=== PATIENT | male | born 1960 | race Caucasian/White ===

== ENCOUNTER 2021-11-26 16:02 | Inpatient (IN) ==
[2021-11-26 16:37] LABS: Hematocrit 44.5 VOL% (42.0-52.0); Hemoglobin 14.9 GM/DL (14.0-18.0); Immature Granulocytes % 0.5 %; Immature Granulocytes Absolute 0.02 #; Lymphocytes # 0.4 10*3/uL (1.4-4.0); Lymphocytes % 9.3 % (21.2-54.2); Mean Corpuscular HGB Conc 33.5 GM/DL (32-36); Mean Corpuscular Volume 82.6 FL (87-102); Mean Platelet Volume 9.9 FL (9.6-12.0); Monocytes % 5.7 % (1.7-12.7); Neutrophils % 84.5 % (38.7-73.9); Platelet Count 99 T/CUMM (130-400); Red Blood Count 5.39 MC/CUMM (3.8-5.5); Red Cell Distribution Width 13.5 % (9.3-17.3); White Blood Count 4.1 T/CUMM (4-12)
[2021-11-26] MEDS ORDERED: SODIUM CHLORIDE 0.9% 1,000 ML IV STA ×2 (16:48→17:42)
[2021-11-26] MEDS ORDERED: DEXAMETHASONE 4 MG/1 ML VIAL IV STA (16:48)
[2021-11-26] MEDS ORDERED: cefTRIAXone 1,000 MG in SODIUM CHLORIDE 0.9% 100 ML IV STA (16:48)
[2021-11-26 17:07] LABS: Albumin 2.8 G/DL (3.4-5.0); Bilirubin,Total 0.5 MG/DL (0.20-1.00); Osmolality,Calculated 273.5 MOS/KG (273-304); Potassium 3.4 MMOL/L (3.5-5.1); Total Protein 7.2 G/DL (6.4-8.2)
[2021-11-26 17:31] LABS: Ferritin 4721.1 ng/mL (26-388)
[2021-11-26] MEDS ORDERED: DILTIAZEM 50 MG/10 ML VIAL IV STA (17:42)
[2021-11-26] MEDS ORDERED: DILTIAZEM 25 MG/5 ML VIAL IV ONE (17:51)
[2021-11-26] MEDS ORDERED: guaiFENesin/DM ER 600-30 MG TABLET PO PRN (18:20)
[2021-11-26] MEDS ORDERED: CALCIUM CARBONATE CHEW 500 MG TABLET PO PRN (18:20)
[2021-11-26] MEDS ORDERED: ACETAMINOPHEN 325 MG TABLET PO PRN (18:20)
[2021-11-26] MEDS ORDERED: ENOXAPARIN 40 MG/0.4 ML SYRINGE SUBCUT SCH (18:30)
[2021-11-26] MEDS: SODIUM CHLORIDE 0.9% 1,000 ML IV SCH (19:45)
[2021-11-26] MEDS ORDERED: METOPROLOL TARTRATE 5 MG/5 ML VIAL IV STA (19:56)
[2021-11-26] MEDS: FAMOTIDINE 20 MG TABLET PO SCH (21:15)
[2021-11-27 03:56] LABS: Basophils % 0.2 % (0.0-0.8); Hematocrit 45.1 VOL% (42.0-52.0); Immature Granulocytes % 0.4 %; Immature Granulocytes Absolute 0.02 #; Lymphocytes # 0.6 10*3/uL (1.4-4.0); Mean Corpuscular HGB Conc 33.3 GM/DL (32-36); Mean Corpuscular Volume 83.7 FL (87-102); Mean Platelet Volume 11.8 FL (9.6-12.0); Monocytes % 6.7 % (1.7-12.7); Neutrophils % 82.7 % (38.7-73.9); Platelet Count 105 T/CUMM (130-400); Red Blood Count 5.39 MC/CUMM (3.8-5.5); White Blood Count 5.5 T/CUMM (4-12)
[2021-11-27 04:12] LABS: Calcium 8.8 MG/DL (8.5-10.1); Osmolality,Calculated 274.4 MOS/KG (273-304); Potassium 5.7 MMOL/L (3.5-5.1)
[2021-11-27] MEDS: SODIUM CHLORIDE 0.9% 1,000 ML IV SCH ×3 (06:48→19:54)
[2021-11-27] MEDS ORDERED: REMDESIVIR 100 MG in SODIUM CHLORIDE 0.9% 100 ML IV SCH (09:00)
[2021-11-27] MEDS ORDERED: DILTIAZEM INJ 100 MG in SODIUM CHLORIDE 0.9% 100 ML IV SCH (09:00)
[2021-11-27] MEDS ORDERED: DEXAMETHASONE 4 MG TABLET PO SCH (09:00)
[2021-11-27] MEDS ORDERED: INSULIN REGULAR 10 UNIT, CALCIUM GLUCONATE 1,000 MG in DEXTROSE 10% 250 ML IV ONE (09:03)
[2021-11-27] MEDS ORDERED: AZITHROMYCIN INJ 500 MG in SODIUM CHLORIDE 0.9% 250 ML IV ONE (09:04)
[2021-11-27 10:31] LABS: ABG Base Excess -1.5 MMOL/L (-2.5-2.5); ABG Oxygen Saturation 93.5 % (95-100); ABG PCO2 33.8 MM HG (35-48); ABG PH 7.423 (7.35-7.45); ABG PO2 71.2 MM HG (80-95); ABG TCO2 18.8 MMOL/L (23-27); Allen Test Positive; Pt O2 Delivery Device BIPAP
[2021-11-27] MEDS: FAMOTIDINE 20 MG TABLET PO SCH ×2 (10:32→21:23)
[2021-11-27] MEDS: APIXABAN 5 MG TABLET PO SCH ×2 (10:45→21:31)
[2021-11-27] MEDS: DEXAMETHASONE 4 MG/1 ML VIAL IV SCH (10:45)
[2021-11-27] MEDS: CHOLECALCIFEROL 1,000 UNIT TABLET PO SCH (10:47)
[2021-11-27] MEDS: ASCORBIC ACID 500 MG TABLET PO SCH ×2 (10:47→21:23)
[2021-11-27] MEDS: ZINC GLUCONATE 50 MG TABLET PO SCH (10:48)
[2021-11-27] MEDS ORDERED: AMIODARONE INJ 150 MG in DEXTROSE 5% 100 ML IV ONE (11:02)
[2021-11-27] MEDS ORDERED: AMIODARONE INJ 450 MG in DEXTROSE 5% 241 ML IV SCH (11:30)
[2021-11-27] MEDS ORDERED: REMDESIVIR 200 MG in SODIUM CHLORIDE 0.9% 210 ML IV ONE (15:00)
[2021-11-27 16:41] LABS: Calcium 6.6 MG/DL (8.5-10.1); Osmolality,Calculated 291.7 MOS/KG (273-304); Potassium 3.1 MMOL/L (3.5-5.1)
[2021-11-27] MEDS: AMIODARONE INJ 450 MG in DEXTROSE 5% 241 ML IV SCH (23:30)
[2021-11-28 03:46] LABS: Hematocrit 45.9 VOL% (42.0-52.0); Immature Granulocytes % 0.4 %; Immature Granulocytes Absolute 0.04 #; Lymphocytes # 0.4 10*3/uL (1.4-4.0); Lymphocytes % 3.6 % (21.2-54.2); Mean Corpuscular HGB Conc 32.7 GM/DL (32-36); Mean Corpuscular Volume 84.7 FL (87-102); Monocytes % 4.4 % (1.7-12.7); Neutrophils % 91.6 % (38.7-73.9); Platelet Count 144 T/CUMM (130-400); Red Blood Count 5.42 MC/CUMM (3.8-5.5); Red Cell Distribution Width 14.1 % (9.3-17.3); White Blood Count 9.7 T/CUMM (4-12)
[2021-11-28 04:00] LABS: Potassium 4.4 MMOL/L (3.5-5.1)
[2021-11-28 04:08] LABS: Lymphocytes 1 % (20-55); Platelet Estimate Adequate; Segmented Neutrophils 97 % (50-85); Total Cells Counted 100
[2021-11-28 04:16] LABS: Albumin 2.6 G/DL (3.4-5.0); Bilirubin,Total 0.7 MG/DL (0.20-1.00); Calcium 8.8 MG/DL (8.5-10.1); Potassium 4.5 MMOL/L (3.5-5.1); Total Protein 6.8 G/DL (6.4-8.2)
[2021-11-28 04:53] LABS: Sedimentation Rate-Westergren 16 MM/HR (0-20)
[2021-11-28] MEDS ORDERED: diphenhydrAMINE 50 MG/1 ML VIAL IV ONE (06:17)
[2021-11-28] MEDS: SODIUM CHLORIDE 0.9% 1,000 ML IV SCH ×3 (07:30→17:37)
[2021-11-28] MEDS ORDERED: LORazepam 2 MG/1 ML VIAL IV STA (08:01)
[2021-11-28] MEDS ORDERED: ROCURONIUM 100 MG/10 ML VIAL IV ONE (08:16)
[2021-11-28] MEDS ORDERED: ETOMIDATE 20 MG/10 ML VIAL IV ONE ×2 (08:16→08:36)
[2021-11-28] MEDS ORDERED: METOPROLOL TARTRATE 5 MG/5 ML VIAL IV ONE ×3 (08:24→12:36)
[2021-11-28] MEDS ORDERED: MIDAZOLAM 2 MG/2 ML VIAL ONE (08:27)
[2021-11-28] MEDS ORDERED: MIDAZOLAM 2 MG/2 ML VIAL IV ONE (08:31)
[2021-11-28 08:57] LABS: ABG Base Excess -4.6 MMOL/L (-2.5-2.5); ABG HCO3 20.4 MMOL/L (20-26); ABG PO2 71.2 MM HG (80-95); ABG TCO2 23.6 MMOL/L (23-27)
[2021-11-28 08:59] LABS: ABG PH 7.181 (7.35-7.45)
[2021-11-28 09:00] LABS: ABG PCO2 70.4 MM HG (35-48)
[2021-11-28] MEDS: MIDAZOLAM 100 MG in SODIUM CHLORIDE 0.9% 80 ML IV PRN ×2 (09:20→19:28)
[2021-11-28] MEDS: fentaNYL INJ 1,250 MCG in SODIUM CHLORIDE 0.9% 225 ML IV PRN ×2 (09:30→12:47)
[2021-11-28] MEDS: ROCURONIUM 500 MG in SODIUM CHLORIDE 0.9% 500 ML IV PRN (09:34)
[2021-11-28] MEDS ORDERED: BARICITINIB 2 MG TABLET PER TUBE SCH (09:45)
[2021-11-28 10:57] LABS: ABG Base Excess -6.8 MMOL/L (-2.5-2.5); ABG HCO3 18.8 MMOL/L (20-26); ABG Oxygen Saturation 91.5 % (95-100); ABG PO2 86.6 MM HG (80-95); ABG TCO2 23.4 MMOL/L (23-27)
[2021-11-28 11:02] LABS: Bilirubin,Urine Negative (Negative); Blood, Urine Moderate mg/dL (Negative); Glucose,Urine (UA) Negative (Negative); Ketones,Urine Negative (Negative); Mucus,Urine Occasional /LPF (Occasional); Nitrite,Urine Negative (Negative); Protein,Urine 100 MG/DL; RBC,Urine 48 /HPF (0-4); Squamous Epithelial Cell,Urine Occasional /HPF (0-10); Urine Appearance CLEAR (Clear); Urine Color Yellow (Yellow); Urine Specific Gravity 1.018 (1.001-1.035)
[2021-11-28 11:03] LABS: ABG PCO2 78.2 MM HG (35-48)
[2021-11-28] MEDS ORDERED: SODIUM CHLORIDE 0.9% 1,000 ML IV ONE ×2 (11:06→16:14)
[2021-11-28] MEDS: REMDESIVIR 100 MG in SODIUM CHLORIDE 0.9% 100 ML IV SCH (11:56)
[2021-11-28] MEDS: AZITHROMYCIN 250 MG TABLET PO SCH (12:04)
[2021-11-28] MEDS: FAMOTIDINE 20 MG TABLET PO SCH ×2 (12:04→21:06)
[2021-11-28] MEDS: ASCORBIC ACID 500 MG TABLET PO SCH ×2 (12:04→21:06)
[2021-11-28] MEDS: ZINC GLUCONATE 50 MG TABLET PO SCH (12:04)
[2021-11-28] MEDS: DEXAMETHASONE 4 MG/1 ML VIAL IV SCH (12:04)
[2021-11-28] MEDS: APIXABAN 5 MG TABLET PO SCH ×2 (12:04→21:06)
[2021-11-28] MEDS: CHOLECALCIFEROL 1,000 UNIT TABLET PO SCH (12:04)
[2021-11-28] MEDS: cefTRIAXone 1,000 MG in SODIUM CHLORIDE 0.9% 100 ML IV SCH (12:05)
[2021-11-28 12:12] VITALS: BP 142/107
[2021-11-28 12:45] LABS: ABG HCO3 18.8 MMOL/L (20-26); ABG Oxygen Saturation 96.8 % (95-100); ABG TCO2 23.5 MMOL/L (23-27)
[2021-11-28 12:47] LABS: ABG PCO2 80.5 MM HG (35-48); ABG PH 7.109 (7.35-7.45)
[2021-11-28] MEDS ORDERED: ALBUMIN 25% 25 GM/100 ML VIAL IV ONE (14:09)
[2021-11-28] MEDS ORDERED: PHENYLEPHRINE DRIP 40 MG/250 ML PREMIX IV ONE (14:14)
[2021-11-28] MEDS ORDERED: DIGOXIN 0.5 MG/2 ML AMP IV ONE ×3 (14:14→15:15)
[2021-11-28] MEDS: PHENYLEPHRINE DRIP 40 MG/250 ML PREMIX IV PRN ×2 (14:25→22:20)
[2021-11-28] MEDS: AMIODARONE INJ 450 MG in DEXTROSE 5% 241 ML IV SCH (14:44)
[2021-11-28] MEDS: fentaNYL INJ 2,500 MCG in SODIUM CHLORIDE 0.9% 75 ML IV PRN ×2 (16:33→22:29)
[2021-11-29] MEDS: SODIUM CHLORIDE 0.9% 1,000 ML IV SCH ×3 (01:48→18:34)
[2021-11-29] MEDS: ROCURONIUM 500 MG in SODIUM CHLORIDE 0.9% 500 ML IV PRN (03:49)
[2021-11-29] MEDS: fentaNYL INJ 2,500 MCG in SODIUM CHLORIDE 0.9% 75 ML IV PRN ×4 (03:49→21:16)
[2021-11-29 04:35] LABS: ABG Base Excess -7.3 MMOL/L (-2.5-2.5); ABG Oxygen Saturation 93.5 % (95-100); ABG PO2 74.9 MM HG (80-95); ABG TCO2 23.9 MMOL/L (23-27)
[2021-11-29 04:43] LABS: ABG PH 7.168 (7.35-7.45)
[2021-11-29] MEDS: AMIODARONE INJ 450 MG in DEXTROSE 5% 241 ML IV SCH ×2 (04:57→21:03)
[2021-11-29 05:02] LABS: Basophils % 0.1 % (0.0-0.8); Immature Granulocytes % 1.2 %; Immature Granulocytes Absolute 0.15 #; Lymphocytes # 0.7 10*3/uL (1.4-4.0); Lymphocytes % 5.1 % (21.2-54.2); Mean Corpuscular HGB Conc 30.7 GM/DL (32-36); Mean Corpuscular Volume 90.9 FL (87-102); Mean Platelet Volume 10.3 FL (9.6-12.0); Monocytes % 5.8 % (1.7-12.7); Neutrophils % 87.8 % (38.7-73.9); Red Blood Count 4.62 MC/CUMM (3.8-5.5); Red Cell Distribution Width 15.4 % (9.3-17.3)
[2021-11-29 05:05] LABS: Hemoglobin 12.9 GM/DL (14.0-18.0); Platelet Count 103 T/CUMM (130-400); White Blood Count 12.9 T/CUMM (4-12)
[2021-11-29 05:14] LABS: Albumin 2.1 G/DL (3.4-5.0); Bilirubin,Total 0.4 MG/DL (0.20-1.00); Calcium 8.3 MG/DL (8.5-10.1); Ferritin 2869.9 ng/mL (26-388); Osmolality,Calculated 289.5 MOS/KG (273-304); Potassium 5.4 MMOL/L (3.5-5.1); Total Protein 5.6 G/DL (6.4-8.2)
[2021-11-29 05:17] LABS: Band Neutrophils 2 % (0-10); Hypochromia 1+; Lymphocytes 3 % (20-55); Microcytosis 1+; Segmented Neutrophils 90 % (50-85); Total Cells Counted 100
[2021-11-29 05:18] LABS: Ovalocytes Slight; Platelet Estimate Decreased
[2021-11-29] MEDS: PHENYLEPHRINE DRIP 40 MG/250 ML PREMIX IV PRN ×3 (05:20→20:54)
[2021-11-29 06:33] LABS: Sedimentation Rate-Westergren 8 MM/HR (0-20)
[2021-11-29] MEDS: DEXAMETHASONE 4 MG/1 ML VIAL IV SCH (08:28)
[2021-11-29] MEDS: ASCORBIC ACID 500 MG TABLET PO SCH ×2 (08:29→21:42)
[2021-11-29] MEDS: BARICITINIB 2 MG TABLET PER TUBE SCH (08:29)
[2021-11-29] MEDS: AZITHROMYCIN 250 MG TABLET PO SCH (08:29)
[2021-11-29] MEDS: CHOLECALCIFEROL 1,000 UNIT TABLET PO SCH (08:30)
[2021-11-29] MEDS: APIXABAN 5 MG TABLET PO SCH ×2 (08:30→21:43)
[2021-11-29] MEDS: FAMOTIDINE 20 MG TABLET PER TUBE SCH (08:30)
[2021-11-29] MEDS: ZINC GLUCONATE 50 MG TABLET PO SCH (08:30)
[2021-11-29] MEDS: REMDESIVIR 100 MG in SODIUM CHLORIDE 0.9% 100 ML IV SCH (08:31)
[2021-11-29] MEDS: MIDAZOLAM 100 MG in SODIUM CHLORIDE 0.9% 80 ML IV PRN (10:02)
[2021-11-29] MEDS: cefTRIAXone 1,000 MG in SODIUM CHLORIDE 0.9% 100 ML IV SCH (11:56)
[2021-11-29] MEDS ORDERED: DEXTROSE 50% 25 GM/50 ML SYRINGE IV PRN (13:37)
[2021-11-29] MEDS ORDERED: GLUCAGON 1 MG VIAL IM PRN (13:37)
[2021-11-29] MEDS: DIGOXIN 0.25 MG TABLET PO SCH (15:23)
[2021-11-29] MEDS: INSULIN REGULAR 100 UNIT/ML SUBCUT SCH (18:34)
[2021-11-30] MEDS: INSULIN REGULAR 100 UNIT/ML SUBCUT SCH ×4 (00:40→17:42)
[2021-11-30] MEDS: MIDAZOLAM 100 MG in SODIUM CHLORIDE 0.9% 80 ML IV PRN ×2 (01:22→17:00)
[2021-11-30] MEDS: SODIUM CHLORIDE 0.9% 1,000 ML IV SCH (02:41)
[2021-11-30 03:57] LABS: ABG Base Excess -7.6 MMOL/L (-2.5-2.5); ABG HCO3 20.2 MMOL/L (20-26); ABG PCO2 50.3 MM HG (35-48); ABG PH 7.221 (7.35-7.45); ABG PO2 60.8 MM HG (80-95); ABG TCO2 21.7 MMOL/L (23-27)
[2021-11-30 03:59] LABS: Basophils % 0.1 % (0.0-0.8); Hematocrit 40.7 VOL% (42.0-52.0); Hemoglobin 12.3 GM/DL (14.0-18.0); Immature Granulocytes % 1.4 %; Immature Granulocytes Absolute 0.16 #; Lymphocytes # 0.6 10*3/uL (1.4-4.0); Lymphocytes % 5.8 % (21.2-54.2); Mean Corpuscular HGB Conc 30.2 GM/DL (32-36); Mean Corpuscular Volume 91.1 FL (87-102); Mean Platelet Volume 9.4 FL (9.6-12.0); Monocytes % 5.8 % (1.7-12.7); Neutrophils % 86.9 % (38.7-73.9); Platelet Count 113 T/CUMM (130-400); Red Blood Count 4.47 MC/CUMM (3.8-5.5); Red Cell Distribution Width 15.7 % (9.3-17.3); White Blood Count 11.1 T/CUMM (4-12)
[2021-11-30 04:27] LABS: Alanine Aminotransferase 50 U/L (16-61); Albumin 1.9 G/DL (3.4-5.0); Alkaline Phosphatase 94 U/L (45-117); Aspartate Amino Transferase 48 U/L (0-37); Bilirubin,Total < 0.39 MG/DL (0.20-1.00); Blood Urea Nitrogen 57 MG/DL (7-18); Carbon Dioxide 23 MMOL/L (21-32); Estimated Glom Filtration Rate 23 ML/MIN; Ferritin 2377.6 ng/mL (26-388); Glucose 134 MG/DL (74-106); Potassium 5.4 MMOL/L (3.5-5.1); Sodium 143 MMOL/L (136-145); Total Protein 5.3 G/DL (6.4-8.2)
[2021-11-30 05:01] LABS: Sedimentation Rate-Westergren 6 MM/HR (0-20)
[2021-11-30] MEDS: fentaNYL INJ 2,500 MCG in SODIUM CHLORIDE 0.9% 75 ML IV PRN ×3 (05:05→20:12)
[2021-11-30] MEDS: DEXAMETHASONE 4 MG/1 ML VIAL IV SCH (08:06)
[2021-11-30] MEDS: BARICITINIB 2 MG TABLET PER TUBE SCH (08:07)
[2021-11-30] MEDS: ASCORBIC ACID 500 MG TABLET PO SCH ×2 (08:07→21:06)
[2021-11-30] MEDS: ZINC GLUCONATE 50 MG TABLET PO SCH (08:07)
[2021-11-30] MEDS: FAMOTIDINE 20 MG TABLET PER TUBE SCH (08:07)
[2021-11-30] MEDS: CHOLECALCIFEROL 1,000 UNIT TABLET PO SCH (08:07)
[2021-11-30] MEDS: APIXABAN 5 MG TABLET PO SCH ×2 (08:07→21:07)
[2021-11-30] MEDS: AZITHROMYCIN 250 MG TABLET PO SCH (08:07)
[2021-11-30] MEDS: PHENYLEPHRINE DRIP 40 MG/250 ML PREMIX IV PRN (08:20)
[2021-11-30] MEDS: REMDESIVIR 100 MG in SODIUM CHLORIDE 0.9% 100 ML IV SCH (09:37)
[2021-11-30] MEDS ORDERED: FUROSEMIDE 40 MG/4 ML VIAL IV ONE (10:26)
[2021-11-30] MEDS: LACTATED RINGERS 1,000 ML IV SCH ×2 (11:22→22:08)
[2021-11-30] MEDS: AMIODARONE INJ 450 MG in DEXTROSE 5% 241 ML IV SCH (12:43)
[2021-11-30] MEDS: cefTRIAXone 1,000 MG in SODIUM CHLORIDE 0.9% 100 ML IV SCH (12:44)
[2021-11-30] MEDS: DIGOXIN 0.25 MG TABLET PO SCH (14:54)
[2021-11-30] MEDS ORDERED: DIGOXIN 0.5 MG/2 ML AMP IV ONE (15:07)
[2021-11-30] MEDS: ROCURONIUM 500 MG in SODIUM CHLORIDE 0.9% 500 ML IV PRN (21:10)
[2021-12-01] MEDS: INSULIN REGULAR 100 UNIT/ML SUBCUT SCH ×4 (00:27→19:05)
[2021-12-01] MEDS: AMIODARONE INJ 450 MG in DEXTROSE 5% 241 ML IV SCH (03:12)
[2021-12-01] MEDS: fentaNYL INJ 2,500 MCG in SODIUM CHLORIDE 0.9% 75 ML IV PRN ×3 (04:08→19:05)
[2021-12-01 04:54] LABS: Hematocrit 37.6 VOL% (42.0-52.0); Hemoglobin 11.4 GM/DL (14.0-18.0); Immature Granulocytes % 1.6 %; Immature Granulocytes Absolute 0.18 #; Lymphocytes # 0.5 10*3/uL (1.4-4.0); Lymphocytes % 4.1 % (21.2-54.2); Mean Corpuscular HGB Conc 30.3 GM/DL (32-36); Mean Corpuscular Volume 92.2 FL (87-102); Mean Platelet Volume 10.2 FL (9.6-12.0); Monocytes % 6.1 % (1.7-12.7); Neutrophils % 88.2 % (38.7-73.9); Platelet Count 107 T/CUMM (130-400); Red Blood Count 4.08 MC/CUMM (3.8-5.5); Red Cell Distribution Width 15.8 % (9.3-17.3); White Blood Count 11.1 T/CUMM (4-12)
[2021-12-01 04:57] LABS: ABG Base Excess -6.9 MMOL/L (-2.5-2.5); ABG HCO3 18.8 MMOL/L (20-26); ABG Oxygen Saturation 96.9 % (95-100); ABG PCO2 56.9 MM HG (35-48); ABG TCO2 20.3 MMOL/L (23-27)
[2021-12-01 05:09] LABS: ABG PH 7.196 (7.35-7.45)
[2021-12-01 05:17] LABS: Albumin 1.7 G/DL (3.4-5.0); Bilirubin,Total 0.4 MG/DL (0.20-1.00); Calcium 7.8 MG/DL (8.5-10.1); Osmolality,Calculated 313.7 MOS/KG (273-304); Potassium 5.9 MMOL/L (3.5-5.1)
[2021-12-01 05:22] LABS: Lymphocytes 6 % (20-55); Platelet Estimate Decreased; Segmented Neutrophils 87 % (50-85); Total Cells Counted 100
[2021-12-01] MEDS: PHENYLEPHRINE DRIP 40 MG/250 ML PREMIX IV PRN (05:34)
[2021-12-01] MEDS ORDERED: SODIUM POLYSTYRENE SULFATE 15 GM/60 ML BOTTLE PO ONE (07:24)
[2021-12-01] MEDS: LACTATED RINGERS 1,000 ML IV SCH (07:50)
[2021-12-01] MEDS: MIDAZOLAM 100 MG in SODIUM CHLORIDE 0.9% 80 ML IV PRN (07:51)
[2021-12-01] MEDS: APIXABAN 5 MG TABLET PO SCH ×2 (08:13→20:27)
[2021-12-01] MEDS: ASCORBIC ACID 500 MG TABLET PO SCH ×2 (08:13→20:27)
[2021-12-01] MEDS: DEXAMETHASONE 4 MG/1 ML VIAL IV SCH (08:13)
[2021-12-01] MEDS: AZITHROMYCIN 250 MG TABLET PO SCH (08:13)
[2021-12-01] MEDS: BARICITINIB 2 MG TABLET PER TUBE SCH (08:14)
[2021-12-01] MEDS: ZINC GLUCONATE 50 MG TABLET PO SCH (08:14)
[2021-12-01] MEDS: FAMOTIDINE 20 MG TABLET PER TUBE SCH (08:14)
[2021-12-01] MEDS: CHOLECALCIFEROL 1,000 UNIT TABLET PO SCH (08:14)
[2021-12-01] MEDS: SODIUM CHLORIDE 0.45% 1,000 ML IV SCH (08:19)
[2021-12-01] MEDS: REMDESIVIR 100 MG in SODIUM CHLORIDE 0.9% 100 ML IV SCH (10:04)
[2021-12-01] MEDS: ROCURONIUM 500 MG in SODIUM CHLORIDE 0.9% 500 ML IV PRN (10:30)
[2021-12-01] MEDS: cefTRIAXone 1,000 MG in SODIUM CHLORIDE 0.9% 100 ML IV SCH (11:38)
[2021-12-01] MEDS: AMIODARONE 200 MG TABLET PO SCH ×2 (14:25→20:27)
[2021-12-01] MEDS: DIGOXIN 0.25 MG TABLET PO SCH (14:25)
[2021-12-02] MEDS: ROCURONIUM 500 MG in SODIUM CHLORIDE 0.9% 500 ML IV PRN ×2 (00:30→13:24)
[2021-12-02] MEDS: INSULIN REGULAR 100 UNIT/ML SUBCUT SCH ×4 (00:38→17:32)
[2021-12-02] MEDS: MIDAZOLAM 100 MG in SODIUM CHLORIDE 0.9% 80 ML IV PRN ×2 (00:44→15:30)
[2021-12-02] MEDS: fentaNYL INJ 2,500 MCG in SODIUM CHLORIDE 0.9% 75 ML IV PRN ×3 (02:20→17:48)
[2021-12-02 04:09] LABS: ABG Base Excess -4.6 MMOL/L (-2.5-2.5); ABG HCO3 20.4 MMOL/L (20-26); ABG Oxygen Saturation 88.8 % (95-100); ABG PCO2 55.6 MM HG (35-48); ABG PH 7.236 (7.35-7.45); ABG PO2 61.9 MM HG (80-95); ABG TCO2 21.7 MMOL/L (23-27)
[2021-12-02 04:09] LABS: Basophils % 0.1 % (0.0-0.8); Hematocrit 36.3 VOL% (42.0-52.0); Immature Granulocytes % 3.1 %; Immature Granulocytes Absolute 0.32 #; Lymphocytes # 0.5 10*3/uL (1.4-4.0); Lymphocytes % 4.3 % (21.2-54.2); Mean Corpuscular HGB Conc 30.3 GM/DL (32-36); Mean Corpuscular Volume 91.2 FL (87-102); Mean Platelet Volume 9.8 FL (9.6-12.0); Monocytes % 6.7 % (1.7-12.7); Neutrophils % 85.8 % (38.7-73.9); Platelet Count 132 T/CUMM (130-400); Red Blood Count 3.98 MC/CUMM (3.8-5.5); Red Cell Distribution Width 15.9 % (9.3-17.3); White Blood Count 10.4 T/CUMM (4-12)
[2021-12-02 04:29] LABS: Alanine Aminotransferase 33 U/L (16-61); Albumin 1.6 G/DL (3.4-5.0); Alkaline Phosphatase 87 U/L (45-117); Aspartate Amino Transferase 36 U/L (0-37); Band Neutrophils 1 % (0-10); Bilirubin,Total < 0.39 MG/DL (0.20-1.00); Blood Urea Nitrogen 88 MG/DL (7-18); Calcium 8.5 MG/DL (8.5-10.1); Carbon Dioxide 22 MMOL/L (21-32); Estimated Glom Filtration Rate 21 ML/MIN; Glucose 135 MG/DL (74-106); Hypochromia Slight; Lymphocytes 7 % (20-55); Microcytosis Slight; Osmolality,Calculated 318.6 MOS/KG (273-304); Platelet Estimate Normal; Potassium 5.4 MMOL/L (3.5-5.1); Segmented Neutrophils 87 % (50-85); Sodium 146 MMOL/L (136-145); Total Cells Counted 100
[2021-12-02] MEDS: ZINC GLUCONATE 50 MG TABLET PO SCH (08:12)
[2021-12-02] MEDS: BARICITINIB 2 MG TABLET PER TUBE SCH (08:12)
[2021-12-02] MEDS: FAMOTIDINE 20 MG TABLET PER TUBE SCH (08:12)
[2021-12-02] MEDS: SODIUM ZIRCONIUM CYCLOSILICATE 10 GM PACK PO SCH (08:12)
[2021-12-02] MEDS: CHOLECALCIFEROL 1,000 UNIT TABLET PO SCH (08:12)
[2021-12-02] MEDS: APIXABAN 5 MG TABLET PO SCH ×2 (08:12→20:37)
[2021-12-02] MEDS: AMIODARONE 200 MG TABLET PO SCH ×2 (08:13→20:37)
[2021-12-02] MEDS: DEXAMETHASONE 4 MG/1 ML VIAL IV SCH (08:13)
[2021-12-02] MEDS: ASCORBIC ACID 500 MG TABLET PO SCH ×2 (08:13→20:37)
[2021-12-02] MEDS: cefTRIAXone 1,000 MG in SODIUM CHLORIDE 0.9% 100 ML IV SCH (11:09)
[2021-12-02] MEDS: SODIUM CHLORIDE 0.45% 1,000 ML IV SCH (20:22)
[2021-12-03] MEDS: INSULIN REGULAR 100 UNIT/ML SUBCUT SCH ×4 (00:14→17:46)
[2021-12-03 01:35] LABS: ABG Base Excess -3.2 MMOL/L (-2.5-2.5); ABG HCO3 21.5 MMOL/L (20-26); ABG Oxygen Saturation 85.1 % (95-100); ABG PCO2 59.4 MM HG (35-48); ABG PO2 57.1 MM HG (80-95); ABG TCO2 23.2 MMOL/L (23-27)
[2021-12-03] MEDS: fentaNYL INJ 2,500 MCG in SODIUM CHLORIDE 0.9% 75 ML IV PRN ×4 (01:41→23:01)
[2021-12-03] MEDS: ROCURONIUM 500 MG in SODIUM CHLORIDE 0.9% 500 ML IV PRN (02:51)
[2021-12-03 04:30] LABS: Basophils % 0.2 % (0.0-0.8); Hematocrit 37.9 VOL% (42.0-52.0); Hemoglobin 11.7 GM/DL (14.0-18.0); Immature Granulocytes % 6.8 %; Immature Granulocytes Absolute 0.76 #; Lymphocytes # 0.3 10*3/uL (1.4-4.0); Lymphocytes % 2.3 % (21.2-54.2); Mean Corpuscular HGB Conc 30.9 GM/DL (32-36); Mean Corpuscular Volume 91.5 FL (87-102); Mean Platelet Volume 9.7 FL (9.6-12.0); Monocytes % 7.9 % (1.7-12.7); Neutrophils % 82.8 % (38.7-73.9); Platelet Count 164 T/CUMM (130-400); Red Blood Count 4.14 MC/CUMM (3.8-5.5); Red Cell Distribution Width 15.7 % (9.3-17.3); White Blood Count 11.2 T/CUMM (4-12)
[2021-12-03 04:53] LABS: Hypochromia 1+; Lymphocytes 5 % (20-55); Microcytosis 1+; Platelet Estimate Adequate; Segmented Neutrophils 87 % (50-85); Total Cells Counted 100
[2021-12-03 04:54] LABS: Osmolality,Calculated 323.4 MOS/KG (273-304); Potassium 5.3 MMOL/L (3.5-5.1)
[2021-12-03] MEDS: MIDAZOLAM 100 MG in SODIUM CHLORIDE 0.9% 80 ML IV PRN ×2 (07:12→22:42)
[2021-12-03 08:22] LABS: Ferritin 1634.1 ng/mL (26-388)
[2021-12-03] MEDS: BARICITINIB 2 MG TABLET PER TUBE SCH (09:54)
[2021-12-03] MEDS: SODIUM ZIRCONIUM CYCLOSILICATE 10 GM PACK PO SCH (09:54)
[2021-12-03] MEDS: DEXAMETHASONE 4 MG/1 ML VIAL IV SCH (09:54)
[2021-12-03] MEDS: CHOLECALCIFEROL 1,000 UNIT TABLET PO SCH (09:54)
[2021-12-03] MEDS: FAMOTIDINE 20 MG TABLET PER TUBE SCH (09:54)
[2021-12-03] MEDS: ZINC GLUCONATE 50 MG TABLET PO SCH (09:54)
[2021-12-03] MEDS: APIXABAN 5 MG TABLET PO SCH ×2 (09:55→21:12)
[2021-12-03] MEDS: ASCORBIC ACID 500 MG TABLET PO SCH ×2 (09:55→21:12)
[2021-12-03] MEDS: AMIODARONE 200 MG TABLET PO SCH ×2 (09:55→21:12)
[2021-12-03] MEDS: cefTRIAXone 1,000 MG in SODIUM CHLORIDE 0.9% 100 ML IV SCH (13:08)
[2021-12-03] MEDS: SODIUM CHLORIDE 0.45% 1,000 ML IV SCH (14:37)
[2021-12-03 21:15] LABS: ABG Base Excess -2.4 MMOL/L (-2.5-2.5); ABG HCO3 22.2 MMOL/L (20-26); ABG Oxygen Saturation 84.3 % (95-100); ABG PO2 56.9 MM HG (80-95); ABG TCO2 25.3 MMOL/L (23-27)
[2021-12-03 21:16] LABS: ABG PH 7.205 (7.35-7.45)
[2021-12-03 21:17] LABS: ABG PCO2 70.6 MM HG (35-48)
[2021-12-03] MEDS ORDERED: METOPROLOL TARTRATE 5 MG/5 ML VIAL IV ONE ×2 (21:23)
[2021-12-03 22:22] LABS: ABG HCO3 21.7 MMOL/L (20-26); ABG Oxygen Saturation 89.8 % (95-100); ABG PH 7.234 (7.35-7.45); ABG PO2 65.7 MM HG (80-95); ABG TCO2 23.4 MMOL/L (23-27)
[2021-12-04] MEDS: INSULIN REGULAR 100 UNIT/ML SUBCUT SCH ×4 (00:19→18:12)
[2021-12-04 03:52] LABS: Basophils % 0.2 % (0.0-0.8); Hematocrit 40.2 VOL% (42.0-52.0); Hemoglobin 12.3 GM/DL (14.0-18.0); Immature Granulocytes % 1.4 %; Immature Granulocytes Absolute 0.16 #; Lymphocytes # 0.2 10*3/uL (1.4-4.0); Lymphocytes % 1.6 % (21.2-54.2); Mean Corpuscular HGB Conc 30.6 GM/DL (32-36); Mean Platelet Volume 9.8 FL (9.6-12.0); Monocytes % 10.1 % (1.7-12.7); Neutrophils % 86.7 % (38.7-73.9); Platelet Count 161 T/CUMM (130-400); Red Blood Count 4.42 MC/CUMM (3.8-5.5); Red Cell Distribution Width 15.7 % (9.3-17.3); White Blood Count 11.1 T/CUMM (4-12)
[2021-12-04 03:53] LABS: ABG Base Excess -2.4 MMOL/L (-2.5-2.5); ABG HCO3 22.1 MMOL/L (20-26); ABG Oxygen Saturation 81.7 % (95-100); ABG PCO2 59.8 MM HG (35-48); ABG PO2 51.4 MM HG (80-95); ABG TCO2 23.6 MMOL/L (23-27)
[2021-12-04 04:10] LABS: Calcium 8.5 MG/DL (8.5-10.1); Osmolality,Calculated 330.1 MOS/KG (273-304); Potassium 5.5 MMOL/L (3.5-5.1)
[2021-12-04 04:11] LABS: Band Neutrophils 5 % (0-10); Lymphocytes 5 % (20-55); Nucleated Red Blood Cells 1 (0-5); Platelet Estimate Adequate; Segmented Neutrophils 84 % (50-85); Total Cells Counted 100
[2021-12-04] MEDS: ROCURONIUM 500 MG in SODIUM CHLORIDE 0.9% 500 ML IV PRN ×2 (04:26→17:08)
[2021-12-04 05:52] LABS: ABG Base Excess -3.7 MMOL/L (-2.5-2.5); ABG HCO3 21.2 MMOL/L (20-26); ABG Oxygen Saturation 86.5 % (95-100); ABG PO2 62.4 MM HG (80-95); ABG TCO2 24.4 MMOL/L (23-27)
[2021-12-04 05:54] LABS: ABG PH 7.188 (7.35-7.45)
[2021-12-04 05:55] LABS: ABG PCO2 69.9 MM HG (35-48)
[2021-12-04] MEDS: fentaNYL INJ 2,500 MCG in SODIUM CHLORIDE 0.9% 75 ML IV PRN ×3 (05:59→18:11)
[2021-12-04] MEDS ORDERED: SODIUM POLYSTYRENE SULFATE 15 GM/60 ML BOTTLE PO ONE (07:40)
[2021-12-04] MEDS: PHENYLEPHRINE INJ 80 MG in SODIUM CHLORIDE 0.9% 242 ML IV PRN ×2 (07:53→21:00)
[2021-12-04 08:21] LABS: ABG Base Excess -4.5 MMOL/L (-2.5-2.5); ABG HCO3 20.5 MMOL/L (20-26); ABG Oxygen Saturation 85.6 % (95-100); ABG PO2 63.2 MM HG (80-95); ABG TCO2 25.4 MMOL/L (23-27)
[2021-12-04 08:23] LABS: ABG PCO2 81.1 MM HG (35-48); ABG PH 7.135 (7.35-7.45)
[2021-12-04] MEDS: MIDAZOLAM 100 MG in SODIUM CHLORIDE 0.9% 80 ML IV PRN ×2 (08:23→18:13)
[2021-12-04 10:18] LABS: ABG Base Excess -5.1 MMOL/L (-2.5-2.5); ABG HCO3 19.9 MMOL/L (20-26); ABG PO2 56.9 MM HG (80-95); ABG TCO2 25.8 MMOL/L (23-27)
[2021-12-04] MEDS: SODIUM ZIRCONIUM CYCLOSILICATE 10 GM PACK PO SCH (10:18)
[2021-12-04] MEDS: DEXAMETHASONE 4 MG/1 ML VIAL IV SCH (10:18)
[2021-12-04 10:19] LABS: ABG PH 7.109 (7.35-7.45)
[2021-12-04] MEDS: ZINC GLUCONATE 50 MG TABLET PO SCH (10:19)
[2021-12-04] MEDS: ASCORBIC ACID 500 MG TABLET PO SCH ×2 (10:19→22:07)
[2021-12-04] MEDS: CHOLECALCIFEROL 1,000 UNIT TABLET PO SCH (10:19)
[2021-12-04] MEDS: FAMOTIDINE 20 MG TABLET PER TUBE SCH (10:19)
[2021-12-04] MEDS: BARICITINIB 2 MG TABLET PER TUBE SCH (10:19)
[2021-12-04] MEDS: APIXABAN 5 MG TABLET PO SCH ×2 (10:19→22:07)
[2021-12-04] MEDS: AMIODARONE 200 MG TABLET PO SCH ×2 (10:20→22:07)
[2021-12-04 10:21] LABS: ABG PCO2 87.3 MM HG (35-48)
[2021-12-04] MEDS: SODIUM CHLORIDE 0.45% 1,000 ML IV SCH (10:38)
[2021-12-04] MEDS ORDERED: POLYETHYLENE GLYCOL POWDER 17 GM PACK PO PRN (12:02)
[2021-12-04 12:07] LABS: ABG HCO3 19.9 MMOL/L (20-26); ABG Oxygen Saturation 77.2 % (95-100); ABG PO2 52.1 MM HG (80-95)
[2021-12-04 12:10] LABS: ABG PCO2 87.8 MM HG (35-48); ABG PH 7.108 (7.35-7.45)
[2021-12-04] MEDS: cefTRIAXone 1,000 MG in SODIUM CHLORIDE 0.9% 100 ML IV SCH (12:40)
[2021-12-04] MEDS: POLYETHYLENE GLYCOL POWDER 17 GM PACK PO SCH (12:41)
[2021-12-04] MEDS: METOCLOPRAMIDE 10 MG/2 ML VIAL IV SCH (19:18)
[2021-12-04] MEDS ORDERED: SODIUM BICARBONATE 50 MEQ/50 ML SYRINGE IV ONE (20:30)
[2021-12-04] MEDS ORDERED: EPINEPHrine 1 MG/10 ML SYRINGE ONE (20:30)
[2021-12-04] MEDS ORDERED: CALCIUM CHLORIDE 1,000 MG/10 ML SYRINGE IV ONE (20:30)
[2021-12-04 20:51] LABS: ABG Base Excess -11.4 MMOL/L (-2.5-2.5); ABG HCO3 14.5 MMOL/L (20-26); ABG Oxygen Saturation 35.2 % (95-100); ABG TCO2 24.9 MMOL/L (23-27)
[2021-12-04 20:56] LABS: ABG PH 6.958 (7.35-7.45)
[2021-12-04] MEDS ORDERED: NOREPINEPHRINE 4 MG/4 ML VIAL IV ONE (20:56)
[2021-12-04 20:57] LABS: ABG PO2 29.4 MM HG (80-95)
[2021-12-04] MEDS ORDERED: SODIUM BICARBONATE 50 MEQ/50 ML VIAL IV ONE (21:01)
[2021-12-04] MEDS: SODIUM BICARB INJ 150 MEQ in STERILE WATER INJ 850 ML IV SCH (22:15)
[2021-12-04] MEDS: PHENYLEPHRINE INJ 160 MG in SODIUM CHLORIDE 0.9% 234 ML IV PRN (23:41)
[2021-12-05] MEDS: INSULIN REGULAR 100 UNIT/ML SUBCUT SCH ×2 (00:15→05:11)
[2021-12-05] MEDS: METOCLOPRAMIDE 10 MG/2 ML VIAL IV SCH ×2 (00:46→05:51)
[2021-12-05] MEDS: fentaNYL INJ 2,500 MCG in SODIUM CHLORIDE 0.9% 75 ML IV PRN ×2 (01:26→08:49)
[2021-12-05] MEDS: NOREPINEPHRINE 8 MG in SODIUM CHLORIDE 0.9% 242 ML IV PRN ×3 (01:36→08:47)
[2021-12-05 02:56] LABS: ABG Base Excess -3.4 MMOL/L (-2.5-2.5); ABG HCO3 20.6 MMOL/L (20-26); ABG Oxygen Saturation 45.1 % (95-100); ABG TCO2 26.5 MMOL/L (23-27)
[2021-12-05 03:05] LABS: ABG PCO2 81.9 MM HG (35-48); ABG PH 7.148 (7.35-7.45); ABG PO2 30.4 MM HG (80-95)
[2021-12-05 03:50] LABS: Calcium 8.3 MG/DL (8.5-10.1)
[2021-12-05 03:53] LABS: Potassium 6.4 MMOL/L (3.5-5.1)
[2021-12-05 04:02] LABS: Basophils # 0.1 10*3/uL (0.0-0.2); Basophils % 0.4 % (0.0-0.8); Hematocrit 42.5 VOL% (42.0-52.0); Immature Granulocytes % 2.3 %; Immature Granulocytes Absolute 0.57 #; Lymphocytes # 0.3 10*3/uL (1.4-4.0); Lymphocytes % 1.2 % (21.2-54.2); Mean Corpuscular HGB Conc 29.4 GM/DL (32-36); Mean Corpuscular Volume 94.2 FL (87-102); Mean Platelet Volume 10.6 FL (9.6-12.0); Monocytes % 5.9 % (1.7-12.7); NRBC # 0.08 10*3/uL; Neutrophils % 90.2 % (38.7-73.9); Platelet Count 218 T/CUMM (130-400); Red Blood Count 4.51 MC/CUMM (3.8-5.5); Red Cell Distribution Width 16.3 % (9.3-17.3)
[2021-12-05 04:05] LABS: Hemoglobin 12.5 GM/DL (14.0-18.0)
[2021-12-05 04:09] LABS: Lymphocytes 2 % (20-55); Nucleated Red Blood Cells 1 (0-5); Platelet Estimate Adequate; Segmented Neutrophils 92 % (50-85); Total Cells Counted 100
[2021-12-05] MEDS: MIDAZOLAM 100 MG in SODIUM CHLORIDE 0.9% 80 ML IV PRN (04:11)
[2021-12-05] MEDS: PHENYLEPHRINE INJ 160 MG in SODIUM CHLORIDE 0.9% 234 ML IV PRN ×2 (04:11→08:48)
[2021-12-05] MEDS ORDERED: SODIUM POLYSTYRENE SULFATE 15 GM/60 ML BOTTLE PO ONE (05:20)
[2021-12-05] MEDS: ROCURONIUM 500 MG in SODIUM CHLORIDE 0.9% 500 ML IV PRN (05:30)
[2021-12-05] MEDS ORDERED: INSULIN REGULAR 10 UNIT, CALCIUM GLUCONATE 1,000 MG in DEXTROSE 10% 250 ML IV ONE (06:00)
[2021-12-05] MEDS: SODIUM BICARB INJ 150 MEQ in STERILE WATER INJ 850 ML IV SCH (06:46)
[2021-12-05] MEDS: CHOLECALCIFEROL 1,000 UNIT TABLET PO SCH (08:15)
[2021-12-05] MEDS: ZINC GLUCONATE 50 MG TABLET PO SCH (08:15)
[2021-12-05] MEDS: POLYETHYLENE GLYCOL POWDER 17 GM PACK PO SCH (08:16)
[2021-12-05] MEDS: SODIUM ZIRCONIUM CYCLOSILICATE 10 GM PACK PO SCH (08:16)
[2021-12-05] MEDS: ASCORBIC ACID 500 MG TABLET PO SCH (08:16)
[2021-12-05] MEDS: APIXABAN 5 MG TABLET PO SCH (08:17)
[2021-12-05] MEDS: DEXAMETHASONE 4 MG/1 ML VIAL IV SCH (08:17)
[2021-12-05] MEDS: FAMOTIDINE 20 MG TABLET PER TUBE SCH (08:18)
[2021-12-05] MEDS: AMIODARONE 200 MG TABLET PO SCH (08:18)
[2021-12-05] MEDS ORDERED: BARICITINIB 2 MG TABLET PER TUBE SCH (09:00)
== END 2021-12-05 09:27 | disposition expired | DRG 207 ==
LOC: EDUNIT# → EDBD → N.ED 16:02 → N.EDINP 18:20 → SUATTDRO 18:20 → N.CC 11-28 08:11
PROVIDERS: ADMIT Internal Medicine; ATTEND Family Medicine